=== PATIENT | male | born 1995 | race Caucasian/White ===

== ENCOUNTER 2024-06-21 18:44 | Emergency (ER) | payer OTHER, SELFPAY ==
[2024-06-21 18:56] VITALS: BP 153/98; PULSE 90; TEMP 36.8; O2SAT 100; BMI 30.9
== END 2024-06-21 19:55 | disposition left against medical advice (07) ==
LOC: ER 19:12
PROVIDERS: Emergency Provider Emergency Medicine; Family Provider Family Medicine
DX: Z53.21 Procedure and treatment not carried out due to patient leaving prior to being seen by health care provider (principal); R07.81 Pleurodynia
CPT/HCPCS: 99281